=== PATIENT | male | born 1980 | race Caucasian/White ===

== ENCOUNTER 2017-04-09 07:49 | Emergency (ER) | payer OTHER ==
[~2017-04-09] VITALS: Ht 175.3 cm; Wt 95.3 kg
[~2017-04-09 07:49] MED LIST: AMOXICILLIN 50500 MG PO; AUGMENTIN 875875 MG PO; IBUPROFEN 800800 M1 PO; IBUPROFEN 800800 MG PO; PREDNISONE 10 M10 MG PO; PREDNISONE 20 M20 M1 PO; TRAMADOL 50 MG50 MG PO
[2017-04-09 07:56] VITALS: BP 122/70
[2017-04-09] MEDS ORDERED: OSELB75 PO (08:01)
[2017-04-09] MEDS ORDERED: AZITHROMYCIN 2250 MG PO (08:03)
== END 2017-04-09 08:11 | disposition home or self-care (01) ==
LOC: M.ERS 07:49
DX: J11.1 Influenza due to unidentified influenza virus with other respiratory manifestations (principal); J40 Bronchitis, not specified as acute or chronic

== ENCOUNTER 2017-06-12 09:17 | Emergency (ER) | payer OTHER ==
[~2017-06-12] VITALS: Ht 177.8 cm; Wt 95.3 kg
[~2017-06-12 09:17] MED LIST changes: +AZITHROMYCIN 2250 MG PO; +OSELB75 PO
[2017-06-12] MEDS ORDERED: ZPAK PO (10:18)
[2017-06-12] MEDS ORDERED: MUCUS-ER MAX1200 MG PO (10:18)
[2017-06-12 10:26] VITALS: BP 116/73
== END 2017-06-12 10:29 | disposition home or self-care (01) ==
LOC: M.ERS 09:17
DX: J06.9 Acute upper respiratory infection, unspecified (principal)

== ENCOUNTER 2017-11-09 10:46 | Emergency (ER) | payer OTHER ==
[~2017-11-09] VITALS: Ht 177.8 cm; Wt 104.3 kg
[~2017-11-09 10:46] MED LIST changes: +MUCUS-ER MAX1200 MG PO; +ZPAK PO
[2017-11-09] MEDS ORDERED: NOHOMEMEDICATIONS (10:55)
[2017-11-09] MEDS ORDERED: KEFLEX500 M1 PO (11:39)
[2017-11-09] MEDS ORDERED: BACTRIM DS TAB1 EACH PO (11:39)
[2017-11-09 11:52] VITALS: BP 122/82
== END 2017-11-09 11:54 | disposition home or self-care (01) ==
LOC: M.ERS 10:46
DX: L03.115 Cellulitis of right lower limb (principal)

== ENCOUNTER 2018-08-09 16:51 | Emergency (ER) | payer OTHER ==
[~2018-08-09] VITALS: Ht 175.3 cm; Wt 123.8 kg
[~2018-08-09 16:51] MED LIST changes: +BACTRIM DS TAB1 EACH PO; +KEFLEX500 M1 PO; +NOHOMEMEDICATIONS
[2018-08-09 16:59] VITALS: BP 124/89
[2018-08-09] MEDS ORDERED: MUCINEX600 MG PO (17:10)
== END 2018-08-09 17:30 | disposition home or self-care (01) ==
LOC: M.ERS 16:51
DX: J06.9 Acute upper respiratory infection, unspecified (principal)